=== PATIENT | female | born 2000 ===

== ENCOUNTER 2020-12-07 11:35 | Emergency (ER) | payer MEDICAID ==
[2020-12-07 11:49] VITALS: BP 113/70
[2020-12-07] MEDS ORDERED: TETANUS,DIPH,PERTUSS(ACELL) VACCINE 0.5 ML SYRINGE IM ONE (12:09)
[2020-12-07] MEDS ORDERED: NEOMY 3.5 MG/BACIT 400 UNITS/POLY B 5000 UNITS/GM OINT PACKET TP STA (12:09)
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
== END 2020-12-07 13:30 | disposition home or self-care (01) ==
LOC: ED 11:35
DX: O9A.212 Injury, poisoning and certain other consequences of external causes complicating pregnancy, second trimester (principal); S40.811A Abrasion of right upper arm, initial encounter; Z3A.20 20 weeks gestation of pregnancy; V49.9XXA Car occupant (driver) (passenger) injured in unspecified traffic accident, initial encounter; W22.10XA Striking against or struck by unspecified automobile airbag, initial encounter; Y93.89 Activity, other specified; Y92.89 Other specified places as the place of occurrence of the external cause; Y99.8 Other external cause status
CPT/HCPCS: 90471; 90715; 99283; A6250